=== PATIENT | male | born 1960 | race Caucasian/White ===

== ENCOUNTER → 2016-06-11 | Outpatient (CLI) | payer BC ==
[~2016-06-11] MED LIST: ASPIRIN ADULT L81 M3 PO; CALCIUM 600 +1 EA11 PO; MASON NATURAL1200 MG PO; MAVIK2 M1 PO; MULTIPLE VITAMI1 TA5 PO; ZOCOR40 M1 PO
== END ==
LOC: LAB 16:55
DX: N20.0 Calculus of kidney (principal)

== ENCOUNTER → 2016-06-13 | Outpatient (CLI) | payer BC | LOC: LAB 07:38 | DX: N20.0 Calculus of kidney (principal) ==

== ENCOUNTER → 2016-06-14 | Outpatient (CLI) | payer BC ==
[~2016-06-14] VITALS: Ht 185.4 cm; Wt 95.5 kg
[2016-06-14 17:20] VITALS: BP 154/88
[2016-06-14 19:45] VITALS: BP 140/85
[2016-06-14 20:40] VITALS: BP 138/82
--- NOTE | 2016-06-14 20:45 | NUR ---
Patient alert and oriented. States that he is feeling pretty good. Reports minimal pain. Denies nausea. Zofran and percocet take home medication packs. Printed education and verbal instructions regarding zofran, percocet, and kidney stones provided. Patient and verbalize understanding and deny questions at this time. Out of facility via wheelchair to POV with . Transfers into POV without incicent.
== END ==
LOC: AMSURD 17:22
DX: R10.32 Left lower quadrant pain (principal); R30.0 Dysuria; N23 Unspecified renal colic; Z87.442 Personal history of urinary calculi
CPT/HCPCS: J1885; J2270; J2405; J7030

== ENCOUNTER → 2017-04-22 | Outpatient (CLI) | payer BC ==
[2016-06-14 20:40] VITALS: BP 138/82
[2017-04-22 09:17] LABS: HEMATOCRIT 44.6 % (42.0-52.0); HEMOGLOBIN 14.8 g/dL (13.5-18.0); MEAN PLATELET VOLUME 9.1 fl (7.4-10.4); RED BLOOD COUNT 5.33 M/mm3 (4.20-5.60); RED CELL DISTRIBUTION WIDTH 12.7 % (11.5-14.5); WHITE BLOOD COUNT 5.6 K/mm3 (4.8-10.8)
[2017-04-22 09:41] LABS: ALBUMIN 4.4 g/dL (3.5-5.0); BUN/CREATININE RATIO 16.6 (6.0-26.0); CALCIUM 9.7 mg/dL (8.4-10.2); POTASSIUM 4.4 mmol/L (3.6-5.0); TOTAL BILIRUBIN 0.7 mg/dL (0.2-1.3); TOTAL PROTEIN 7.9 g/dL (6.3-8.2)
== END ==
LOC: LAB 09:09
PROVIDERS: Family Medicine
DX: I10 Essential (primary) hypertension (principal); Z80.42 Family history of malignant neoplasm of prostate; E78.5 Hyperlipidemia, unspecified

== ENCOUNTER → 2018-04-16 | Outpatient (CLI) | payer BC ==
[2016-06-14 20:40] VITALS: BP 138/82
[2018-04-16 10:25] LABS: HEMATOCRIT 42.3 % (42.0-52.0); HEMOGLOBIN 14.4 g/dL (13.5-18.0); MEAN CELL VOLUME 84 fl (78-100); MEAN CORPUSCULAR HEMOGLOBIN 29 pg (27-31); MEAN CORPUSCULAR HGB CONC 34 g/dL (33-37); MEAN PLATELET VOLUME 9.4 fl (7.4-10.4); PLATELET COUNT 312 K/mm3 (130-400); RED BLOOD COUNT 5.04 M/mm3 (4.20-5.60); RED CELL DISTRIBUTION WIDTH 12.7 % (11.5-14.5); WHITE BLOOD COUNT 5.9 K/mm3 (4.8-10.8)
[2018-04-16 10:32] LABS: ALBUMIN 4.4 g/dL (3.5-5.0); CALCIUM 9.4 mg/dL (8.4-10.2); POTASSIUM 4.7 mmol/L (3.6-5.0); TOTAL BILIRUBIN 0.5 mg/dL (0.2-1.3); TOTAL PROTEIN 7.8 g/dL (6.3-8.2)
[2018-04-16 11:25] LABS: LYMPHOCYTE 20 % (20-51); MONOCYTE 6 % (3-10); NEUTROPHILS 69 % (42-75)
== END ==
LOC: LAB 09:54
PROVIDERS: Physician Assistant
DX: Z12.5 Encounter for screening for malignant neoplasm of prostate (principal); Z00.00 Encounter for general adult medical examination without abnormal findings; I10 Essential (primary) hypertension; E78.5 Hyperlipidemia, unspecified; N20.0 Calculus of kidney; C44.300 Unspecified malignant neoplasm of skin of unspecified part of face; R63.5 Abnormal weight gain; Z80.42 Family history of malignant neoplasm of prostate

== ENCOUNTER 2020-10-06 19:46 | Emergency (ER) | payer BC ==
[2020-10-06] MEDS ORDERED: LASIX20 M1 PO (20:09)
[2020-10-06] MEDS ORDERED: ZYRTEC10 M3 PO (20:10)
[2020-10-06] MEDS ORDERED: POTASSIUM CITRA5 MEQ PO (20:16)
[2020-10-06 20:36] LABS: HEMATOCRIT 42.3 % (42.0-52.0); HEMOGLOBIN 14.7 g/dL (13.5-18.0); MEAN CELL VOLUME 81 fl (78-100); MEAN CORPUSCULAR HEMOGLOBIN 28 pg (27-31); MEAN CORPUSCULAR HGB CONC 35 g/dL (33-37); MEAN PLATELET VOLUME 9.9 fl (7.4-10.4); PLATELET COUNT 356 K/mm3 (130-400); RED BLOOD COUNT 5.21 M/mm3 (4.20-5.60); WHITE BLOOD COUNT 9.9 K/mm3 (4.8-10.8)
[2020-10-06 20:40] LABS: ALBUMIN 4.6 g/dL (3.5-5.0); POTASSIUM 3.4 mmol/L (3.5-5.1)
[2020-10-06 20:41] LABS: CALCIUM 9.7 mg/dL (8.3-10.5)
[2020-10-06 20:44] LABS: TOTAL BILIRUBIN 0.4 mg/dL (0.2-1.2)
[2020-10-06 20:53] LABS: PARTIAL THROMBOPLASTIN TIME 23.7 SECONDS (21.0-32.0); PROTHROMBIN TIME 9.3 SECONDS (9.0-12.0)
[2020-10-06 20:54] LABS: LYMPHOCYTE 50 % (20-51); MONOCYTE 12 % (3-10); NEUTROPHILS 34 % (42-75)
[2020-10-06 23:06] VITALS: BP 126/82
== END 2020-10-06 23:06 | disposition short-term general hospital (02) ==
LOC: ED 19:46
PROVIDERS: Family Medicine
DX: I24.9 Acute ischemic heart disease, unspecified (principal); I10 Essential (primary) hypertension; E78.5 Hyperlipidemia, unspecified; Z20.822 Contact with and (suspected) exposure to COVID-19; Z79.82 Long term (current) use of aspirin; Z79.899 Other long term (current) drug therapy
CPT/HCPCS: J1644; J2270

== ENCOUNTER 2020-10-24 08:01 | Outpatient (RCR) | payer BC ==
[~2020-10-24 08:01] MED LIST changes: +LASIX20 M1 PO; +POTASSIUM CITRA5 MEQ PO; +ZYRTEC10 M3 PO
== END 2021-01-22 | disposition home or self-care (01) ==
LOC: CARDREHAB
DX: I21.9 Acute myocardial infarction, unspecified (principal); Z95.5 Presence of coronary angioplasty implant and graft

== ENCOUNTER → 2020-12-20 | Outpatient (CLI) | payer BC ==
[2020-12-20 08:56] LABS: BASO # 0.02 (0.02-0.10); EOS # 0.32 (0.04-0.40); EOS % 4.6 % (0.0-4.0); HEMATOCRIT 43.4 % (42.0-52.0); HEMOGLOBIN 14.6 g/dL (13.5-18.0); LYMPH# 1.75 (1.50-4.00); MEAN CELL VOLUME 84 fl (78-100); MEAN CORPUSCULAR HEMOGLOBIN 28 pg (27-31); MEAN CORPUSCULAR HGB CONC 34 g/dL (33-37); MEAN PLATELET VOLUME 9.3 fl (7.4-10.4); MONO # 0.76 (0.20-0.80); NEU # 4.12 (1.40-6.50); PLATELET COUNT 294 K/mm3 (130-400); RED CELL DISTRIBUTION WIDTH 12.7 % (11.5-14.5)
[2020-12-20 21:55] LABS: ALBUMIN 4.3 g/dL (3.4-4.8); POTASSIUM 3.5 mmol/L (3.5-5.1)
[2020-12-20 21:56] LABS: CALCIUM 8.6 mg/dL (8.3-10.5)
[2020-12-20 21:57] LABS: TOTAL PROTEIN 7.8 g/dL (6.2-8.1)
[2020-12-20 21:59] LABS: TOTAL BILIRUBIN 0.8 mg/dL (0.2-1.2)
== END ==
LOC: LAB 08:36
PROVIDERS: Physician Assistant
DX: Z00.00 Encounter for general adult medical examination without abnormal findings (principal); Z12.5 Encounter for screening for malignant neoplasm of prostate; I10 Essential (primary) hypertension; E78.2 Mixed hyperlipidemia; Z13.29 Encounter for screening for other suspected endocrine disorder; K90.9 Intestinal malabsorption, unspecified

== ENCOUNTER → 2021-05-28 | Outpatient (CLI) | payer BC ==
[2021-05-28 07:56] LABS: ALBUMIN 4.4 g/dL (3.4-4.8); POTASSIUM 3.7 mmol/L (3.5-5.1)
[2021-05-28 07:57] LABS: CALCIUM 9.7 mg/dL (8.3-10.5)
[2021-05-28 07:59] LABS: TOTAL PROTEIN 7.8 g/dL (6.2-8.1)
[2021-05-28 08:00] LABS: TOTAL BILIRUBIN 0.7 mg/dL (0.2-1.2)
== END ==
LOC: LAB 07:25
PROVIDERS: Nurse Practitioner
DX: I25.10 Atherosclerotic heart disease of native coronary artery without angina pectoris (principal)

== ENCOUNTER → 2022-01-13 | Outpatient (CLI) | payer BC ==
[2022-01-13 08:31] LABS: BASO # 0.03 K/mm3 (0.02-0.10); EOS # 0.35 K/mm3 (0.04-0.40); EOS % 5.4 % (0.0-4.0); HEMATOCRIT 41.7 % (42.0-52.0); HEMOGLOBIN 13.8 g/dL (13.5-18.0); LYMPH# 1.95 K/mm3 (1.50-4.00); MEAN CELL VOLUME 86 fl (78-100); MEAN CORPUSCULAR HEMOGLOBIN 29 pg (27-31); MEAN CORPUSCULAR HGB CONC 33 g/dL (33-37); MEAN PLATELET VOLUME 9.3 fl (7.4-10.4); MONO # 0.79 K/mm3 (0.20-0.80); NEU # 3.38 K/mm3 (1.40-6.50); PLATELET COUNT 258 K/mm3 (130-400); RED BLOOD COUNT 4.84 M/mm3 (4.20-5.60); RED CELL DISTRIBUTION WIDTH 12.8 % (11.5-14.5); WHITE BLOOD COUNT 6.5 K/mm3 (4.8-10.8)
[2022-01-13 09:29] LABS: ALBUMIN 4.1 g/dL (3.4-4.8); POTASSIUM 4.1 mmol/L (3.5-5.1)
[2022-01-13 09:30] LABS: CALCIUM 9.5 mg/dL (8.3-10.5)
[2022-01-13 09:32] LABS: TOTAL PROTEIN 7.4 g/dL (6.2-8.1)
[2022-01-13 09:33] LABS: TOTAL BILIRUBIN 0.7 mg/dL (0.2-1.2)
== END ==
LOC: LAB 07:53
PROVIDERS: Physician Assistant
DX: Z00.00 Encounter for general adult medical examination without abnormal findings (principal); Z12.5 Encounter for screening for malignant neoplasm of prostate; I21.4 Non-ST elevation (NSTEMI) myocardial infarction; J30.1 Allergic rhinitis due to pollen; I10 Essential (primary) hypertension; E78.2 Mixed hyperlipidemia; L57.0 Actinic keratosis; K90.9 Intestinal malabsorption, unspecified

== ENCOUNTER → 2022-01-13 | Outpatient (CLI) | payer BC | LOC: LAB 07:48 → EDSTATUS 11:04 | DX: Z00.00 Encounter for general adult medical examination without abnormal findings (principal); Z12.5 Encounter for screening for malignant neoplasm of prostate; I21.4 Non-ST elevation (NSTEMI) myocardial infarction; J30.1 Allergic rhinitis due to pollen; I10 Essential (primary) hypertension; E78.2 Mixed hyperlipidemia; L57.0 Actinic keratosis; K90.9 Intestinal malabsorption, unspecified ==